=== PATIENT | male | born 1960 | race Caucasian/White ===

== ENCOUNTER → 2021-11-06 15:19 | Outpatient (BNVA) | payer SELFPAY | PROVIDERS: Family Provider Family Medicine; PCP Family Medicine; Visit Provider Family Medicine Adult Medicine | DX: N39.0 Urinary tract infection, site not specified (principal) | CPT/HCPCS: 81000 ==

== ENCOUNTER → 2021-12-26 14:13 | Outpatient (BNVA) | payer SELFPAY | PROVIDERS: Family Provider Family Medicine; PCP Family Medicine; Visit Provider Registered Nurse Neonatal Intensive Care | DX: N39.0 Urinary tract infection, site not specified (principal); R30.0 Dysuria | CPT/HCPCS: 81000; 87086 ==

== ENCOUNTER → 2022-01-14 15:37 | Outpatient (BNVA) | payer SELFPAY | PROVIDERS: Family Provider Family Medicine; PCP Family Medicine; Visit Provider Family Medicine Adult Medicine | DX: M25.541 Pain in joints of right hand (principal) | CPT/HCPCS: 73130 ==

== ENCOUNTER 2024-10-28 16:18 | Outpatient (CLI) | payer SELFPAY ==
--- NOTE | 2024-10-28 16:29 | XRR_ITS ---
PROCEDURE INFORMATION: Exam: XR Chest Exam date and time: 10/28/2024 4:37 PM Age: 64 years old Clinical indication: Pain; Shortness of breath; Angina pectoris; Congestion, HX of copd; Additional info: SOB, chest pain TECHNIQUE: Imaging protocol: Radiologic exam of the chest. Views: 2 views. COMPARISON: No relevant prior studies available. FINDINGS: Lungs: Hyperinflated hyperlucent lungs consistent with emphysematous lung disease. Clear lung parenchyma. Pleural spaces: Unremarkable. No pleural effusion. No pneumothorax. Heart/Mediastinum: Unremarkable. No cardiomegaly. Bones/joints: Unremarkable. XR/XR chest 2V* [id number] IMPRESSION: No acute findings.
== END 2024-10-28 16:19 | disposition home or self-care (01) ==
DX: J44.1 Chronic obstructive pulmonary disease with (acute) exacerbation (principal); J45.901 Unspecified asthma with (acute) exacerbation; Z76.89 Persons encountering health services in other specified circumstances; Z12.5 Encounter for screening for malignant neoplasm of prostate
CPT/HCPCS: 71046; 80053; 80061; 85025; G0103

== ENCOUNTER 2024-11-04 10:50 | Outpatient (CLI) | payer SELFPAY ==
--- NOTE | 2024-11-04 11:15 | CT_ITS ---
WS: [id number] LDCT LUNG CANCER SCREENING HISTORY: screening TECHNIQUE: Axial imaging performed from the apices to 1 cm below the costophrenic angles. Coronal and sagittal reformats are submitted with axial MIP series. All CT scans at [facility] use at least one of these dose optimization techniques: automated exposure control; mA and/or kV adjustment per patient size (includes targeted exams where dose is matched to clinical indication); or iterative reconstruction. DLP: 54.61 mGy.cm DIvol: Mean CTDIvol: 0.90 (mGy) COMPARISON: None available. Diagnostic quality: Satisfactory Lungs: Pulmonary hyperexpansion. No mass or pulmonary nodule. Benign granuloma LEFT lower lobe. No pneumonia. No endobronchial lesions. Heart: Normal size heart with no pericardial effusion.. Other findings: Mild atherosclerosis aorta. Normal size pulmonary artery. Small hiatal hernia. Mild thickening of the LEFT adrenal gland may be a small adenoma. Subcapsular hepatic lesion measuring 10 mm of decreased density. CT/CT lung screening [id number] IMPRESSION: LUNG-RADS: 2S-Benign Appearance or Behavior with Significant Findings FOLLOW UP: 12 Month: Continue annual screening with LDCT OTHER FINDINGS (S MODIFIER): Subcapsular, 10 mm hepatic hypodensity. May be a s mall cyst. Consider further evaluation by ultrasound.
== END 2024-11-04 10:51 | disposition home or self-care (01) ==
LOC: RAD 10:51
DX: Z12.2 Encounter for screening for malignant neoplasm of respiratory organs (principal); J44.9 Chronic obstructive pulmonary disease, unspecified
CPT/HCPCS: 71271

== ENCOUNTER 2024-11-25 06:59 | Outpatient (CLI) | payer SELFPAY ==
--- NOTE | 2024-11-25 07:15 | US_ITS ---
WS: [id number] Gallbladder and right upper quadrant ultrasound, 11/25/2024 Clinical Data: 10 mm hepatic hypodensity Comparison: None. Findings: The gallbladder shows no sludge or stone. The wall measures 0.3 cm with no pericholecystic fluid. The common bile duct is 0.4 cm and there are no intrahepatic ductal abnormalities. Liver shows no masses or dilated intrahepatic ducts. There is a small anterior right hepatic cyst measuring 0.9 x 1.2 x 1.4 cm. The pancreas is not obscured by overlying bowel gas and no cyst, pseudocyst, or evidence of pancreatitis is noted. Right kidney measures 9.7 cm and no cyst, masses or hydronephrosis can be seen. The aorta and inferior vena cava show no vascular abnormalities. US/US liver [id number] Impression: Negative right upper quadrant ultrasound with incidental right hepatic cyst.
== END 2024-11-25 07:00 | disposition home or self-care (01) ==
LOC: RAD 07:01
DX: R16.0 Hepatomegaly, not elsewhere classified (principal); K76.89 Other specified diseases of liver
CPT/HCPCS: 76705